=== PATIENT | male | born 2000 | race Caucasian/White ===

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

== ENCOUNTER 2020-03-10 22:24 | Emergency (ER) | payer OTHER ==
[2020-03-10 22:37] VITALS: BP 126/74; PULSE 73; RESP 20; TEMP 98.9
[2020-03-10 22:57] LABS: Basophils # (A) 0.2 k/uL (0-0.2); Basophils % (A) 1 %; Eosinophils # (A) 0.3 k/uL (0-0.7); Eosinophils % (A) 2 %; HCT 46.8 % (39.0-53.0); HGB 15.6 gm/dL (13.0-17.5); Lymphocytes % (A) 27 %; MCHC 33.5 g/dL (31.0-37.0); MCV 83.8 fL (80.0-100.0); Monocytes # (A) 0.9 k/uL (0-1.0); Monocytes % (A) 6 %; Neutrophils % (A) 62 %; Platelet Count 329 k/uL (150-450); RBC 5.58 m/uL (4.30-5.90); RDW 12.4 % (11.5-15.5); WBC 14.5 k/uL (4.0-11.0)
[2020-03-10 23:07] LABS: ALT 26 U/L (4-49); AST 42 U/L (17-59); African American GFR (CKD) >90 (>60 ml/min/1.73 sqM); Albumin 4.6 g/dL (3.5-5.0); Alcohol <10 mg/dL; Alkaline Phosphatase 95 U/L (38-126); Anion Gap 10 mmol/L; Blood Urea Nitrogen 16 mg/dL (9-20); Carbon Dioxide 27 mmol/L (22-30); Chloride 102 mmol/L (98-107); Glucose 65 mg/dL (74-99); Non-African American GFR(CKD) >90 (>60 ml/min/1.73 sqM); Sodium 139 mmol/L (137-145); Total Bilirubin 0.6 mg/dL (0.2-1.3); Total Protein 7.5 g/dL (6.3-8.2)
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
== END 2020-03-11 00:10 | disposition home or self-care (01) ==
LOC: EC 22:24
DX: R51 Headache (principal); R11.0 Nausea; D72.829 Elevated white blood cell count, unspecified; V86.56XA Driver of dirt bike or motor/cross bike injured in nontraffic accident, initial encounter; Y93.89 Activity, other specified; Y92.89 Other specified places as the place of occurrence of the external cause
CPT/HCPCS: 80053; 85025; 72170; 71045; 72125; 70450; 99284; G0480; 36415; 80320

== ENCOUNTER 2024-04-24 02:45 | Emergency (ER) | payer OTHER ==
[2024-04-24 02:55] VITALS: BP 158/81; PULSE 72; RESP 18; TEMP 98.1
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
== END 2024-04-24 03:21 | disposition home or self-care (01) ==
LOC: EC 02:45
CPT/HCPCS: 99283

== ENCOUNTER → 2024-04-25 | Outpatient (CLI) | payer OTHER ==
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
== END | disposition home or self-care (01) ==
LOC: RADXRMAIN 15:30
PROVIDERS: ATTEND Emergency Medicine
DX: S40.012A Contusion of left shoulder, initial encounter (principal)